=== PATIENT | female | born 1950 | race Caucasian/White ===

== ENCOUNTER 2025-04-22 05:33 | Day surgery (SDC) | payer MEDICARE, BC ==
--- NOTE | 2025-04-14 14:43 | RADIOLOGY REPORT ---
EXAM: DI CHEST,TWO VIEWS CLINICAL HISTORY: pain COMPARISON: None TECHNIQUE: Frontal and lateral view of the chest was obtained FINDINGS: Lines and Tubes: None Lungs: No focal consolidation. Pleura: No effusion. No pneumothorax. Cardiomediastinal contours: Unremarkable Bones: No acute osseous abnormality. IMPRESSION: No acute cardiopulmonary disease.
[2025-04-14 14:47] LABS: BASOPHILS # (AUTO) 0.1 X10'3 (0-0.2); BASOPHILS % (AUTO) 1.1 % (0-1); EOSINOPHILS # (AUTO) 0.1 X10'3 (0-0.9); EOSINOPHILS % (AUTO) 1.2 % (0-6); LYMPHOCYTES # (AUTO) 2.1 X10'3 (1.1-4.8); LYMPHOCYTES % (AUTO) 26.8 % (21-51); MEAN CORPUSCULAR HGB CONC 33.8 g/dL (33.0-36.5); MEAN CORPUSCULAR VOLUME 88.9 FL (78-98); MEAN PLATELET VOLUME 7.8 FL (7.4-10.4); MONOCYTES # (AUTO) 0.5 X10'3 (0-0.9); MONOCYTES % (AUTO) 6.6 % (2-12); NEUTROPHILS % (AUTO) 64.3 % (42-75); PRE OP HEMATOCRIT 40.9 % (35.0-45.0); PRE OP HEMOGLOBIN 13.8 g/dL (12.0-16.0); PRE OP PLATELET COUNT 313 X10'3 (140-440); PRE OP WHITE BLOOD COUNT 7.8 10'3 (4.8-10.8); RED CELL DISTRIBUTION WIDTH 13.1 % (11.5-14.5)
[2025-04-14 15:19] LABS: ALBUMIN/GLOBULIN RATIO 1.3 (1.1-1.5); ALKALINE PHOSPHATASE 70 IU/L (46-116); BLOOD UREA NITROGEN 9 MG/DL (7-18); BUN/CREATININE RATIO 10.8 (10.0-20.0); CALCIUM 9.2 MG/DL (8.5-10.1); CHLORIDE 107 MMOL/L (99-107); CREATININE 0.83 MG/DL (0.40-0.90); PRE OP ALT 19 U/L (30-65); PRE OP ANION GAP 9 (8-16); PRE OP AST 18 U/L (10-37); PRE OP BILIRUB, TOTAL 0.5 MG/DL (0.0-1.0); PRE OP GLUCOSE 87 MG/DL (70-104); PRE OP POTASSIUM 3.9 MMOL/L (3.4-5.1); PRE OP SODIUM 144 MMOL/L (135-145); TOTAL CARBON DIOXIDE 27.6 MMOL/L (24-32); eGFR 67 ML/MIN
[2025-04-14 16:29] LABS: BILIRUBIN,URINE NEGATIVE (Neg); CLARITY,URINE SLIGHTLY CLOUDY (Clear); COLOR,URINE YELLOW (Yellow); GLUCOSE, URINE NEGATIVE (Neg); KETONES,URINE 15 mg/dl (Neg); LEUKOCYTE ESTERASE ,URINE MODERATE (Neg); NITRITES, URINE NEGATIVE (Neg); OCCULT BLOOD,URINE NEGATIVE (Neg); PROTEIN,URINE NEGATIVE (Neg); UROBILINOGEN,URINE 0.2 E.U/dL (0.2-1.0)
[2025-04-14 16:33] LABS: UA COLLECTION TYPE CLN CATCH MIDSTREAM
[2025-04-14 16:42] LABS: BACTERIA,URINE 1+ /HPF (Neg); MUCUS STRANDS FEW /LPF (Neg); RBC,URINE 0-2 /HPF (0-2); SQUAMOUS EPITHELIAL CELL,UR FEW /LPF (FEW)
[~2025-04-22] VITALS: Ht 160 cm; Wt 56.7 kg
[2025-04-22] VITALS (20 sets, daily range): BP systolic 138–199; BP diastolic 63–89; PULSE 71–100; RESP 15–21; TEMP 97.1–98.8; O2SAT 94–100
[2025-04-22] MEDS: ceFOXitin sod/dextrose 2g/50ml 50 ML IV ONE (05:30)
[~2025-04-22 05:33] MED LIST: SIMV-42 PO
[2025-04-22] MEDS: ringers solution, lacted 1,000 ML IV SCH ×3 (06:08→13:16)
[2025-04-22] MEDS: famotidine 20mg tablet PO ONE (06:08)
[2025-04-22] MEDS ORDERED: BUPIVAcaine 2.5mg/ml inj 50ml vial (contains preservative) ONE (06:56)
[2025-04-22] MEDS ORDERED: vasoPRESSIN 20 units/ml inj. ONE (06:57)
[2025-04-22] MEDS ORDERED: clindamycin phosphate 40gm vag cream ONE (06:57)
[2025-04-22] MEDS ORDERED: fentaNYL /PF 50mcg/ml 5ml ampule ONE (07:31)
[2025-04-22] MEDS ORDERED: midazolam 1 mg/ML 2ml injection ONE (07:31)
[2025-04-22] MEDS ORDERED: LIDOcaine 2% (20mg/ml) 5ml vial ONE (07:44)
[2025-04-22] MEDS ORDERED: propofol inj 20 ML IV ONE (07:44)
[2025-04-22] MEDS ORDERED: rocuronium 10mg/ml inj IV ONE (07:45)
[2025-04-22] MEDS ORDERED: dexamethasone sod phosphate 4mg/ml inj. ONE (07:45)
[2025-04-22] MEDS ORDERED: ondansetron/PF 4mg/2ml inj ONE (07:45)
[2025-04-22] MEDS ORDERED: sevoflurane 250ml liquid IH ONE (07:58)
[2025-04-22] MEDS ORDERED: acetaminophen 1,000mg/100ml IV 100 ML IV ONE (08:12)
[2025-04-22] MEDS: BUPIVAcaine/PF 2.5 mg/ml (0.25%) 30ml vial IJ ONE (08:21)
[2025-04-22] MEDS ORDERED: labetalol 20mg/4ml (5mg/ml) syringe IV PRN (09:30)
[2025-04-22] MEDS ORDERED: meperidine/PF 25mg/ml syringe IV PRN ×3 (09:30)
[2025-04-22] MEDS ORDERED: morphine 4 MG/ML inj SYRINge IV PRN (09:30)
[2025-04-22] MEDS ORDERED: morphine 2 MG/ML inj. syringe IV PRN (09:30)
[2025-04-22] MEDS ORDERED: proCHLORperazine 10 MG/2 ml inj IV PRN (09:30)
[2025-04-22] MEDS ORDERED: enalaprilat 1.25mg/ml 2ml vial IV PRN (09:30)
[2025-04-22] MEDS ORDERED: ondansetron/PF 4mg/2ml inj IV PRN ×2 (09:30→11:10)
[2025-04-22] MEDS ORDERED: fluoroscein sod 10% (100mg/ml) 5ml vial ONE (10:32)
[2025-04-22] MEDS ORDERED: LORazepam 2 mg/ml vial IV PRN (11:10)
[2025-04-22] MEDS ORDERED: ketorolac trometh 30MG/ML vial 30 MG/ML VIAL IV PRN (11:10)
[2025-04-22] MEDS ORDERED: magnesium hydroxide 30ml (MOM) UD suspension PO PRN (11:10)
[2025-04-22] MEDS ORDERED: metoclopramide 5 mg/ml inj IV PRN (11:10)
[2025-04-22] MEDS ORDERED: acetaminophen w/codeine (30MG) #3 tablet PO PRN (11:10)
[2025-04-22] MEDS ORDERED: normal saline 500ml IV soln 500 ML IV PRN (11:10)
[2025-04-22] MEDS ORDERED: temazepam 15mg capsule PO PRN (11:10)
[2025-04-22] MEDS ORDERED: diphenhydrAMINE 50 mg/ml inj IV PRN (11:10)
--- NOTE | 2025-04-22 12:13 | OPERATIVE REPORT ---
DATE OF SURGERY: 04/22/2025 DICTATING PHYSICIAN: Ortega Sigala MD PREOPERATIVE DIAGNOSIS: Symptomatic pelvic organ prolapse. POSTOPERATIVE DIAGNOSIS: Symptomatic pelvic organ prolapse. SURGEON: Ortega Sigala MD ENVIRONMENTAL PROTECTION ECONOMIST: Timi Cai MD ANESTHESIOLOGIST: Dr. Blake ANESTHESIA: General. PROCEDURES: Laparoscopic-assisted vaginal hysterectomy with bilateral salpingo-oophorectomy, uterosacral vaginal vault suspension, anterior and posterior repairs, and cystoscopy. FINDINGS: Pelvic organ prolapse as noted on the H and P. LAPAROSCOPIC FINDINGS: Atrophic and otherwise grossly normal-appearing uterus, tubes, and ovaries. ESTIMATED BLOOD LOSS: 150 mL. COMPLICATIONS: None. INDICATIONS: The patient is a 74-year-old female with symptomatic pelvic organ prolapse including uterine prolapse as well as a large rectocele and a cystocele. The patient declined conservative management with a pessary, requested surgical management and agreed to the above procedures. TECHNIQUE: The patient was taken to the OR where general anesthesia was found to be adequate. She was placed in the dorsal lithotomy position. She was prepped and draped in the usual sterile fashion. The cervix was infiltrated with a dilute solution of vasopressin and a SHARLENE manipulator was placed transcervically and secured in the usual fashion. A transurethral catheter was placed. We changed gloves. A Veress needle was introduced through the umbilicus and the abdomen was insufflated with CO2 gas to 15 mmHg. The Veress needle was removed and a 5 mm trocar was placed through the umbilicus. An additional 5 mm trocar was placed at the right lower quadrant and an 8 mm trocar at the left lower quadrant. Pelvic organs were inspected with findings as noted above. Per the patient's desires, we proceeded to hysterectomy with bilateral salpingo-oophorectomy. The right infundibulopelvic ligament was identified and sequentially coagulated and divided with the LigaSure device. The incision was then extended to include the round ligament. The incision was then extended along the anterior and posterior leaves of the right broad ligament to the level of the cardinal ligaments. The uterine vessels were identified, coagulated, and divided. The entire procedure was then duplicated on the left aspect. The vesicouterine peritoneum was identified and sequentially transversely coagulated and divided in its entirety. At this point, attention was turned to the uterosacral ligaments, which were identified and tagged sequentially bilaterally. Anterior and posterior colpotomies were then performed sequentially with application of monopolar coagulating current through a monopolar spatula directly over the cup of the SHARLENE manipulator. The CO2 gas was allowed to egress and we proceeded to the vaginal aspect of the surgery. The SHARLENE manipulator was removed. Anterior and posterior transvaginal wall retractors were placed. The cervix was placed under traction and the uterosacral ligaments were sequentially and bilaterally clamp, cut, and suture ligated with 0 Vicryl sutures. The uterus with the attached tubes and ovaries was then extracted transvaginally without difficulty. The uterosacral ligaments were then identified and sequentially suture ligated to the respected right and left angles of the vaginal cuff with 0 Ethibond sutures. The vaginal cuff was then reapproximated with interrupted sutures of #0 Vicryl. The vaginal epithelium was closed in a similar fashion. At this point, we proceeded to identification of the cystocele, which was infiltrated subcutaneously with a dilute solution of vasopressin. The skin overlying the cystocele was then along the midline and T-clamps were placed bilaterally for traction. The vesicouterine peritoneum was identified and dissected off bluntly. Plicating sutures were then placed along the length of the incision with 2-0 Vicryl sutures. The excess vaginal epithelium was trimmed away. The vaginal skin was then reapproximated with a running 2-0 Vicryl suture. The rectocele was then identified, infiltrated subcutaneously at the midline with dilute vasopressin and sharply divided. T-clamps were placed along the length of the incision. The rectovaginal fascia was then dissected up bluntly. Plicating sutures were then placed along the length of the incision. The excess vaginal epithelium was trimmed away. FloSeal was applied to the area due to some oozing. The vaginal epithelium was closed with a running 2-0 Vicryl suture. Excellent hemostasis was noted. Cystoscopy was then performed after IV administration of fluorescent dye. Both ureters were confirmed to be patent with visualization of fluorescent dye colored urine injected through the ureteral jets bilaterally. The cystoscope was removed and a transurethral catheter was replaced. We changed gloves a second time and proceeded to the final laparoscopic inspection. Hemostasis was confirmed throughout the pelvis. Some oozing was noted at the cuff, which was contained with FloSeal. A solution of Marcaine and saline was then freely sprayed over the dome of the liver. A CO2 gas was allowed to egress, no bleeding was noted. The trocars easily were removed. The skin incisions were sequentially closed subcuticularly with 4-0 Monocryl sutures and sealed off with Dermabond. Sponge, lap, instrument and needle counts were reported correct. COMPLICATIONS: None. PATHOLOGY: Uterus, tubes, and ovaries. DISPOSITION: The patient was taken to the recovery room in stable condition. Ortega Sigala MD TID: [id number] RECEIPT: [id number] HANH/LEANN
[2025-04-22] MEDS: docusate sod 100mg capsule PO SCH (20:00)
[2025-04-22] MEDS: simvastatin 20mg tablet PO SCH (20:20)
[2025-04-23 02:00] VITALS: BP 178/86; PULSE 86; RESP 14; TEMP 97.8; O2SAT 98
[2025-04-23] MEDS: acetaminophen w/codeine (30MG) #3 tablet PO PRN (03:33)
[2025-04-23 06:41] VITALS: BP 135/76; PULSE 85; RESP 14; TEMP 98; O2SAT 97
[2025-04-23] MEDS: simethicone 80mg chew tab PO PRN (09:35)
[2025-04-23] MEDS: labetalol 100mg tablet PO ONE (13:46)
[2025-04-23 14:21] VITALS: BP 148/75; RESP 16; O2SAT 98
--- NOTE | 2025-04-23 14:27 | DISCHARGE SUMMARY ---
DATE OF DISCHARGE: 04/22/2025 DICTATING PHYSICIAN: Ortega Sigala MD ADMISSION DIAGNOSIS: The patient was admitted for surgical management of pelvic organ prolapse. DISCHARGE DIAGNOSES: Status post laparoscopic-assisted vaginal hysterectomy with bilateral salpingo-oophorectomy, uterosacral vaginal wall suspension, anterior and posterior repairs, and cystoscopy. HOSPITAL COURSE: On 04/22, the patient was taken to the OR where the above procedures were performed without complications. Her blood loss was average. Her postoperative course has been uncomplicated. She has remained afebrile toward her hospital stay. She is currently ambulating without difficulty, tolerating a regular diet and has voided multiple times. Significantly, the patient's blood pressure has been somewhat labile, although she denies ever having had issues with hypertension. PHYSICAL EXAMINATION: GENERAL: The patient is alert and oriented, complaining of right shoulder pain and otherwise states she has had adequate pain control. VITAL SIGNS: Blood pressure from 135/76-178/86, pulse is currently 85, respiratory rate of 16, saturating 97% on room air. ABDOMEN: Soft, appropriately tender for postop day 1 and mildly distended. PELVIC: Deferred. SIGNIFICANT LABS: CBC and chemistry panel are pending at this time. ASSESSMENT AND PLAN: The patient is stable on postop day #1. Labile blood pressure, the patient's blood pressure has been labile, possibly secondary due to pain. Hence, she will be given some labetalol to stabilize her blood pressure and we will double check before the patient is discharged home. In addition, we will assess her laboratory results prior to discharge home. FOLLOWUP: She will follow up in my office in 2 weeks. Duration of disability is approximately 6 weeks. DISCHARGE MEDICATIONS: Include pain medications as well as a stool softener. The patient will also resume her outpatient medications. ACTIVITY: She is to observe 6 weeks of pelvic rest and not to lift objects over 10 pounds. DIET: Regular. DISPOSITION: The patient will be discharged home today in improved condition. Ortega Sigala MD TID: [id number] RECEIPT: [id number] HANH/LEANN
[2025-04-23 14:46] LABS: BASOPHILS % (AUTO) 0.3 % (0-1); EOSINOPHILS % (AUTO) 0.1 % (0-6); HEMATOCRIT 35.8 % (35.0-45.0); HEMOGLOBIN 12.2 g/dl (12.0-16.0); LYMPHOCYTES # (AUTO) 1.4 X10'3 (1.1-4.8); LYMPHOCYTES % (AUTO) 10.1 % (21-51); MEAN CORPUSCULAR HEMOGLOBIN 30.4 PG (27.0-31.0); MEAN CORPUSCULAR VOLUME 89.3 FL (78-98); MEAN PLATELET VOLUME 7.4 FL (7.4-10.4); MONOCYTES # (AUTO) 1.1 X10'3 (0-0.9); MONOCYTES % (AUTO) 7.8 % (2-12); NEUTROPHILS # (AUTO) 11.4 X10'3 (1.8-7.7); NEUTROPHILS % (AUTO) 81.7 % (42-75); PLATELET COUNT 230 X10'3 (140-440); RED BLOOD COUNT 4.01 X10'6 (4.20-5.60); WHITE BLOOD COUNT 13.9 X10'3 (4.5-11.0)
[2025-04-23 14:56] LABS: ALBUMIN 3.6 G/DL (3.4-5.0); ANION GAP 6 (8-16); BLOOD UREA NITROGEN 7 MG/DL (7-18); BUN/CREATININE RATIO 9.1 (10.0-20.0); CALCIUM 8.9 MG/DL (8.5-10.1); CHLORIDE 98 MMOL/L (99-107); CREATININE 0.77 MG/DL (0.40-0.90); GLUCOSE 131 MG/DL (70-104); POTASSIUM 3.5 MMOL/L (3.5-5.1); SODIUM 132 MMOL/L (135-145); eCRCL 53 ML/MIN; eGFR 73 ML/MIN
--- NOTE | 2025-04-26 13:32 | PATHOLOGY REPORT ---
[facility] [address] [place] [address] SURGICAL PATHOLOGY REPORT CaseNumber: [id number] Surgeon:Ortega Sigala M.D. CLINICAL INFORMATION CLINICAL INFORMATION: Genital prolapse. DIAGNOSIS DIAGNOSIS: UTERUS, BILATERAL OVARIES; HYSTERECTOMY CERVIX: - BENIGN ENDOCERVIX AND SQUAMOUS MUCOSA WITH ATROPHY. ENDOMETRIUM: - INACTIVE ENDOMETRIUM. MYOMETRIUM: - NO SIGNIFICANT PATHOLOGIC ABNORMALITY. SEROSA: - NO SIGNIFICANT PATHOLOGIC ABNORMALITY. FALLOPIAN TUBES: - NO SIGNIFICANT PATHOLOGIC ABNORMALITY. BILATERAL OVARIES: - BENIGN ATROPHIC OVARIES. MICROSCOPIC DESCRIPTION MICROSCOPIC DESCRIPTION: 8 H&E-stained slides are reviewed. They show benign endocervical and ectocer vical mucosa with atrophic changes. The endometrium is inactive; I do not see evidence of dysplasia. The serosa and myometrium shows no significant pathologic abnormalities. The fallopian tubes and ova stephanie appear atrophic but are otherwise unremarkable. GROSS DESCRIPTION GROSS DESCRIPTION: Received in a container of formalin labeled with the patient's name, number, and " uterus, bilateral ovaries" is a 47 gram uterus with attached cervix and attached bilateral adnexa. Th e uterine corpus measures 3.5 x 4 x 3 cm. The attached cervix measures 2.5 cm long by 2.[address] The cervical os is multiparous. The serosa is roughened and purple-mercer. Sectioning reveals a red -mercer endometrium which measures up to 0.1 cm thick. Sectioning the myometrium fails to reveal areas o f nodularity. The myometrium is trabeculated and measures up to 1.2 cm thick. Sectioning the cervix r eveals sheridan-white mucosa with areas of ulceration. The right ovary measures 2.5 x 1 x 0.7 cm. Section ing the ovary reveals a solid cut surface. The attached segment of fallopian tube measures 4.5 cm sisi g by 0.5 cm in diameter. The fallopian tube is unremarkable. The left ovary measures 2.5 x 1 x 0.7 cm . Sectioning the ovary reveals a 0.6 cm area of calcification. The attached segment of fallopian tube measures 4.5 cm long by 0.5 cm in diameter. The fallopian tube is unremarkable. Sections are submitt ed as follows: A1) CervixA2-A3) Endo and myometriumA4-A5) Right adnexaA6-A7) Left adnexa following decalcificationA 8) Serosa The time at which the specimen was removed was 09. The time at which the specimen was placed in fo [facility] was 09. (osmany) Electronically signed by: Martin Overton, 04/26/2025 12:52:00 PM
== END 2025-04-23 15:44 | disposition home or self-care (01) ==
LOC: PAS 05:33 → SUR 3N 12:53 → PAS 13:39
PROVIDERS: ATTEND Obstetrics & Gynecology Obstetrics
DX: N81.89 Other female genital prolapse (principal); Z79.899 Other long term (current) drug therapy; Z79.01 Long term (current) use of anticoagulants; Z98.890 Other specified postprocedural states; Z88.1 Allergy status to other antibiotic agents; Z88.0 Allergy status to penicillin
CPT/HCPCS: 36415; 57260; 57283; 58552; 71046; 80048; 80053; 81001; 82948; 85025; 86885; 86900; 86901; 87081; 87088; A4314; A4618; A7000; J0131; J0694; J1100; J2003; J2250; J2405; J2704; J3010; J3490; J7030; J7120; Z7506; Z7508; Z7512; Z7610; 88305; 88311; G0378